=== PATIENT | female | born 1975 | race Caucasian/White ===

== ENCOUNTER → 2017-01-13 | Outpatient (CLI) | payer BC ==
[2017-01-13 11:41] LABS: BILIRUBIN,URINE Negative (Negative); CLARITY,URINE Clear; COLOR,URINE Yellow; GLUCOSE, URINE (UA) Negative (Negative); LEUKOCYTE ESTERASE ,URINE Trace (Negative); PH,URINE 6.5 (5.0 - 8.0); UROBILINOGEN,URINE 0.2 mg/dL (0.2-1.0)
[2017-01-13 11:45] LABS: BASOPHILS % (AUTO) 0 % (0-2); EOSINOPHILS # (AUTO) 0.2 10^3uL; EOSINOPHILS % (AUTO) 1 % (0-4); LYMPHOCYTES # (AUTO) 2.1 X10^3; MEAN CORPUSCULAR HGB CONC 34.5 g/dL (31.0-37.0); MEAN CORPUSCULAR VOLUME 94 FL (80-100); MEAN PLATELET VOLUME 9.2 FL (6.0-9.5); MONOCYTES # (AUTO) 1.6 X10^3; MONOCYTES % (AUTO) 11 % (3-11); NEUTROPHILS % (AUTO) 74 % (51-67); PLATELET COUNT 157 10^3uL (150-450); WHITE BLOOD COUNT 14.87 10^3uL (4.0-11.0)
[2017-01-13 11:46] LABS: MEAN CORPUSCULAR HEMOGLOBIN 32.5 PG (26.0-34.0)
[2017-01-13 11:53] LABS: URINE CENTRIFUGED VOLUME 12 mL
[2017-01-13 12:37] LABS: ALBUMIN 3.9 g/dL (3.4-5.0); ANION GAP 17.2 MEQ/L (3-15); CALCULATED IONIZED CALCIUM 4.3 mg/dL (3.8-4.6); TOTAL PROTEIN 6.9 g/dL (6.4-8.5)
== END ==
LOC: LAB 11:28
PROVIDERS: ATTEND Family Medicine
DX: R10.84 Generalized abdominal pain (principal); R82.99 Other abnormal findings in urine
CPT/HCPCS: 36415; 80053; 81003; 81015; 85025; 86140; 87077; 87088; 87186